=== PATIENT | male | born 1995 | race African-American/Black ===

== ENCOUNTER 2017-12-02 16:45 | Emergency (ER) | payer OTHER ==
[~2017-12-02] VITALS: Ht 180.3 cm; Wt 93.0 kg
[2017-12-02] MEDS ORDERED: HYDROXYZINE HCL25 M1 PO (17:09)
[2017-12-02 18:31] VITALS: BP 140/82
== END 2017-12-02 18:31 | disposition home or self-care (01) ==
LOC: ER 16:45
DX: J02.9 Acute pharyngitis, unspecified (principal)